=== PATIENT | female | born 2000 | race Hispanic/Latino ===

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

== ENCOUNTER 2022-08-12 16:18 | Emergency (ER) | payer OTHER, SELFPAY ==
[2022-08-12 16:19] VITALS: BP 126/54; PULSE 69; RESP 16; TEMP 36.4; O2SAT 100; BMI 30.5
--- NOTE | 2022-08-12 18:51 | CT_ITS ---
STUDY: CT BRAIN WITHOUT CONTRAST REASON FOR EXAM: Female, 22 years old. Pain RADIATION DOSAGE (If Supplied By Facility): CTDIvol = ( 44.99 ) mGy, DLP = ( 745.49 ) mGycm TECHNIQUE: Transaxial CT imaging of the brain was performed without administration of intravenous contrast material. Individualized dose optimization techniques were used for this CT. COMPARISON: April 08, 2020 FINDINGS: Normal soft tissue structures. Normal calvarium. Normal size ventricles and extra-axial spaces for the patient''s age. Normal white matter tracts of the cerebral hemispheres. Normal basal ganglia and thalami. Normal brainstem. Normal cerebellum. There is no intracranial hemorrhage. There are no findings of an acute ischemic infarction. Normal visualized paranasal sinuses. CT/Brain/Head without Contrast IMPRESSION: Normal unenhanced CT scan of the brain. Electronically Signed: Jer Murray MD at 19:33 EST ,
[2022-08-12 19:05] VITALS: RESP 16
[2022-08-12] MEDS: Metoclopramide 10 MG/2 ML Vial IV (19:06)
[2022-08-12] MEDS: DiphenhydrAMINE 50 MG/ML Syringe 25 MG IV (19:06)
[2022-08-12] MEDS: 0.9% Normal Saline 1,000 ML 999 ML IV (19:06)
--- NOTE | 2022-08-12 19:57 | EX.ED.GENINJ ---
HPI History of Present Illness Chief Complaint: Head Injury Narrative Narrative: 22-year-old female presenting for evaluation of headache. Apparently earlier today about 8 AM she tripped and fell striking her head. She denies LOC. She denies abrasions or lacerations. She states that she has developed nausea over the course of the day. She was able to eat and has not vomited. She did state that she developed light and sound sensitivity. She has no history of migraine headache. [facility] Medical History Anxiety Depression Home Medications Control 1 tab PO DAILY 04/08/20 [History Last Taken Unknown] cetirizine 10 mg capsule 10 mg PO DAILY 04/08/20 [History Last Taken Unknown] escitalopram oxalate 10 mg tablet 10 mg PO DAILY 04/08/20 [History Last Taken Unknown] ondansetron 4 mg disintegrating tablet 4 mg PO Q8H PRN PRN Nausea #14 tabs 08/13/22 [Rx Last Taken Unknown] Allergy/AdvReac Type Severity Reaction Status Date / Time latex Allergy Severe Hives Verified 08/12/22 16:20 coconut Allergy Hives Verified 08/12/22 16:21 lactose [lactose intolerant] AdvReac Upset Verified 08/12/22 16:21 Stomach Social History Smoking Status: Former smoker ROS ROS ED Review of Systems ROS Unobtainable: other Constitutional Constitutional ED: Denies chills or fever(s) Eyes Eyes: Reports other Details: Photophobia Cardiovascular Cardiovascular: Denies chest pain Respiratory/Chest Respiratory/Chest: Denies cough or dyspnea Gastrointestinal Gastrointestinal: Reports nausea; Denies abdominal pain Genitourinary Genitourinary ED: Denies dysuria or hematuria Musculoskeletal Musculoskeletal: Denies arthralgias or neck pain Integumentary Denies abscess or Abrasions Neurologic Neurologic: Reports headache(s); Denies paresthesias Psychiatric Psychiatric: Denies anxiety or depression Endocrine Endocrinology: Denies cold intolerance or heat intolerance EXAM Physical Exam Const Vital Signs: 08/12/22 16:19 08/12/22 17:48 08/12/22 19:05 Temperature 97.5 F L Temperature Source Temporal Pulse Rate 69 Respiratory Rate 16 16 Respiratory Effort Normal Non-Labored Blood Pressure 126/54 H Blood Pressure Mean 78 Pulse Ox 100 Oxygen Delivery Method Room Air Positive well nourished General Appearance ED: NAD HEENT atraumatic Neck full ROM Resp normal respiratory effort and clear to auscultation bilaterally Auscultation: Negative for rales or rhonchi Cardio regular rhythm Rate: regular rate GI normal to inspection, nondistended, normoactive bowel sounds Neuro oriented x3, CN's II-XII intact bilaterally, moves all extremities, no focal motor deficits, no sensory deficits noted and gait normal Sensorium / Orientation: alert and oriented to person Motor Exam: strength 5/5 throughout Skin no rashes or lesions noted and no wounds MDM MDM MDM Narrative Medical decision making narrative: Patient presented with headache which is posttraumatic. She is having mild nausea as well. Light sensitivity and sound sensitivity. Patient has no history of the symptoms and no history of migraine. Vital signs are stable and she is afebrile. No focal neurologic deficits or lateralizing signs or symptoms. Patient was treated with Reglan, Benadryl, normal saline. CT the brain was obtained and is normal and does not show any evidence of intracranial process. On reevaluation the patient's pain is improved. She is discharged home with a prescription for Zofran. I suspect she has mild concussion. Return precautions were discussed. Impression: 1. Mechanical fall 2. Concussion 3. Nausea Lab Data Attestation: I reviewed the patient's lab results. Radiography Diagnostic Testing: Clinical Impression(s) from Imaging Studies Brain CT 08/12/22 18:51 IMPRESSION: Normal unenhanced CT scan of the brain. Electronically Signed: Jer Murray MD at 19:33 EST , Discharge Plan Triage Chief Complaint: Head Injury ED Provider: Miguel Barton Dx/Rx/DC Orders Instructions: ED Concussion Prescriptions: New ondansetron 4 mg tablet,disintegrating 4 mg PO Q8H PRN PRN (Reason: Nausea) Qty: 14 0RF No Action escitalopram oxalate 10 MG tablet 10 mg PO DAILY cetirizine 10 MG capsule 10 mg PO DAILY Control 1 tab PO DAILY Primary Care Provider: Care Physician,No Primary Referrals: Mariola Pettit MD [[employer]] - 3-5 Days Care Physician,No Primary [Primary Care Provider] - Disposition Disposition: Home, Self Care Discharge Date/Time: 08/12/22 20:05
== END 2022-08-12 20:05 | disposition home or self-care (01) ==
PROVIDERS: Emergency Provider Student in an Organized Health Care Education/Training Program; Visit Provider Student in an Organized Health Care Education/Training Program
DX: S06.0X0A Concussion without loss of consciousness, initial encounter (principal); G44.309 Post-traumatic headache, unspecified, not intractable; Z87.891 Personal history of nicotine dependence; R11.0 Nausea; W19.XXXA Unspecified fall, initial encounter
CPT/HCPCS: 70450; 96361; 96374; 96375; 99283; J7030; A4216

== ENCOUNTER 2023-10-08 00:54 | Emergency (ER) | payer OTHER, SELFPAY ==
[2023-10-08 00:57] VITALS: BP 106/65; PULSE 85; RESP 16; TEMP 36.3; O2SAT 100; BMI 31.9
--- NOTE | 2023-10-08 01:10 | EDS_ITS ---
HPI History of Present Illness Chief Complaint: ETOH Intox Narrative Narrative: 23-year-old female, presents via EMS because of nausea and vomiting after drinking too much alcohol. 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 It was senior pint night and the patient cannot recall how much she drank. She went back to her house, and thinks that she was vomiting a lot so her roommate/housemate called EMS. PFSH PFS Medical History Anxiety Depression Home Medications Control 1 tab PO DAILY 04/08/20 [History Last Taken Unknown] cetirizine 10 mg capsule 10 mg PO DAILY 04/08/20 [History Last Taken Unknown] escitalopram oxalate 10 mg tablet 10 mg PO DAILY 04/08/20 [History Last Taken Unknown] ondansetron 4 mg disintegrating tablet 4 mg PO Q8H PRN PRN Nausea #14 tabs 08/13/22 [Rx Last Taken Unknown] Allergy/AdvReac Type Severity Reaction Status Date / Time latex Allergy Severe Hives Verified 10/08/23 00:56 coconut Allergy Hives Verified 10/08/23 00:56 lactose [lactose intolerant] AdvReac Upset Verified 10/08/23 00:56 Stomach Social History Smoking Status: Current every day smoker tobacco type: cigarettes ROS ROS ED ROS Narrative Constitutional: No fever, no chills. HEENT: No sore throat. No neck pain. No loss of vision. No rhinorrhea. Cardiovascular: No chest pain. No palpitations. No pedal edema. Respiratory: No cough, no shortness of breath. Abdominal: No abdominal pain. Positive nausea and vomiting. Genitourinary: No dysuria. No hematuria. Musculoskeletal: No myalgias. No arthralgias. Neurologic: No headaches. No dizziness. No lightheadedness. Skin: No rash. No change in color. Psychiatric: No depression. No anxiety. EXAM Physical Exam Narrative Exam Narrative: Afebrile. Vital signs noted. HEENT: Normocephalic. Atraumatic. PERRL, EOMI. Neck soft and supple. No point tenderness or step off. Cardiovascular: Regular rate and rhythm. No murmurs, rubs, or gallops appreciated. Respiratory: No tachypnea. Lungs clear to auscultation bilaterally. Gastrointestinal: Abdomen soft, nontender, with normoactive bowel sounds. No r ebound or guarding. Neurological: Awake. Alert. Nonfocal, nonlateralizing. Skin: No rash. Normal color. No pallor. Musculoskeletal: No pedal edema. Full range of motion extremities. Const Vital Signs: 10/08/23 00:57 Temperature 97.4 F L Temperature Source Temporal Pulse Rate 85 Respiratory Rate 16 Blood Pressure 106/65 Blood Pressure Mean 78 Pulse Ox 100 Oxygen Delivery Method Room Air MDM MDM MDM Narrative Medical decision making narrative: Concern is for alcohol intoxication and alcoholic gastritis. I do not feel that she needs laboratory work. Additionally, in the differential diagnosis would be mild dehydration and intravascular volume depletion, but she is not tachycardic, and she is not hypotensive. She is awake, alert, and moving all extremities. She will be bolused normal saline 1 L intravenously and administered Zofran for her nausea. When she is clinically sober, she can have a ride come get her. Repeat examination at approximately 2:15 AM shows her to be awake and alert and her friend is at the bedside. They state they can call campus security to come get them as they do not have a car available. She was seen ambulating without difficulty to the restroom. She states she feels improved. I feel she can be discharged safely home with follow-up. She was warned not to over imbibe with alcohol. Return instructions to the emergency department were reviewed. Disposition is discharged home in stable condition. Discharge Plan Triage Chief Complaint: ETOH Intox ED Provider: Ubaldo Jamison Dx/Rx/DC Orders Clinical Impression: Nausea and vomiting, Acute alcohol overingestion Instructions: ED Overdose Alcohol, ED Vomiting (Adult), ED Alcohol Abuse Prescriptions: No Action escitalopram oxalate 10 MG tablet 10 mg PO DAILY cetirizine 10 MG capsule 10 mg PO DAILY Control 1 tab PO DAILY ondansetron 4 mg tablet,disintegrating 4 mg PO Q8H PRN PRN (Reason: Nausea) Qty: 14 0RF Primary Care Provider: Care Physician,No Primary Referrals: Care Physician,No Primary [Primary Care Provider] - Activity Restrictions/Additional Instructions: Refrain from excessive alcohol use. Disposition Disposition: Home, Self Care
[2023-10-08] MEDS: Ondansetron 4 MG/2 ML Vial IV (01:17)
[2023-10-08] MEDS: 0.9% Normal Saline (1000mL) 1,000 ML 999 ML IV (01:17)
[2023-10-08 02:40] VITALS: BP 109/66; PULSE 79; RESP 16; TEMP 36.6; O2SAT 99
== END 2023-10-08 02:44 | disposition home or self-care (01) ==
PROVIDERS: Emergency Provider Emergency Medicine; Visit Provider Emergency Medicine
DX: R11.2 Nausea with vomiting, unspecified (principal); F17.210 Nicotine dependence, cigarettes, uncomplicated; F41.9 Anxiety disorder, unspecified; F32.A Depression, unspecified; F10.90 Alcohol use, unspecified, uncomplicated
CPT/HCPCS: 96361; 96374; 99282; J7030; A4216; J2405